=== PATIENT | female | born 1945 | race Caucasian/White ===

== ENCOUNTER → 2019-03-13 | Outpatient (REF) | payer MEDICARE ==
[2019-03-13 17:10] LABS: ALBUMIN 4.3 GM/DL (3.2-5.2); BILIRUBIN,TOTAL 0.5 MG/DL (0.2-1.0); C REACTIVE PROTEIN QUANTITATIV 0.37 MG/DL (0.00-0.30); CALCIUM LEVEL 9.7 MG/DL (8.8-10.2); CREATININE FOR GFR 1.29 MG/DL (0.55-1.30); GLOMERULAR FILTRATION RATE 43.1 (>39); POTASSIUM SERUM 3.6 MEQ/L (3.5-5.1); TOTAL PROTEIN 8.5 GM/DL (6.4-8.2); URIC ACID 9.2 MG/DL (2.6-6.0)
[2019-03-13 17:15] LABS: BASO # 0.1 10^3/uL (0.0-0.2); BASO % 1.3 % (0.0-1.0); EOS % 0.7 % (0.0-3.0); HEMATOCRIT 38.1 % (36.0-47.0); HEMOGLOBIN 12.3 g/dl (12.0-15.5); LYMPH % 15.7 % (24.0-44.0); MEAN CORPUSCULAR HEMOGLOBIN 31.9 pg (27.0-33.0); MEAN CORPUSCULAR HGB CONC 32.3 g/dl (32.0-36.5); MONO # 0.5 10^3/uL (0.0-0.8); NEUTROPHILS # 4.5 10^3/uL (1.5-8.5); NEUTROPHILS % 73.8 % (36.0-66.0); PLATELET COUNT, AUTOMATED 461 10^3/uL (150-450); RED BLOOD COUNT 3.85 10^6/uL (4.00-5.40); WHITE BLOOD COUNT 6.1 10^3/uL (4.0-10.0)
[2019-03-13 18:40] LABS: ERYTHROCYTE SEDIMENTATION RATE 49 mm/hr (0-30)
== END ==
LOC: M SFHCRHEU 11:40
PROVIDERS: ATTEND Internal Medicine Rheumatology
DX: M1A.9XX1 Chronic gout, unspecified, with tophus (tophi) (principal)
CPT/HCPCS: 36415; 80053; 84550; 85025; 85652; 86140; G0463

== ENCOUNTER → 2019-03-30 | Outpatient (REF) | payer MEDICARE | LOC: M LAB REF 18:21 | PROVIDERS: ATTEND Dermatology | DX: M10.9 Gout, unspecified (principal) ==

== ENCOUNTER → 2020-01-20 | Outpatient (REF) | payer MEDICARE ==
[2020-01-20 17:29] LABS: FERRITIN 283 NG/ML (8-252); IRON (FE) 79 UG/DL (50-170); PERCENT SATURATION 31.7 % (13.2-45.0); TOTAL IRON BINDING CAPACITY 249 UG/DL (250-450); TOTAL PROTEIN 8.2 GM/DL (6.4-8.2)
[2020-01-20 17:35] LABS: FOLATE > 24.0 NG/ML; VITAMIN B12 LEVEL 958 PG/ML
[2020-01-21 09:47] LABS: ALBUMIN 4.75 GM/DL (3.29-5.55); ALBUMIN % 57.9 % (55.8-66.1); ALPHA-1-GLOBULIN % 5.1 % (2.9-4.9); ALPHA-1-GLOBULINS 0.42 GM/DL (0.17-0.41); ALPHA-2-GLOBULINS 0.81 GM/DL (0.42-0.99); ALPHA-2-GLOBULINS % 9.9 % (7.1-11.8); BETA-1-GLOBULINS 0.34 GM/DL (0.28-0.60); BETA-1-GLOBULINS % 4.2 % (4.7-7.2); BETA-2-GLOBULINS 0.32 GM/DL (0.19-0.55); BETA-2-GLOBULINS % 3.9 % (3.2-6.5); GAMMA GLOBULINS 1.56 GM/DL (0.65-1.58)
== END ==
LOC: M SFHCRHEU 11:49
PROVIDERS: ATTEND Internal Medicine
DX: D64.9 Anemia, unspecified (principal)
CPT/HCPCS: 36415; 82607; 82728; 82746; 83550; 84165; G0463

== ENCOUNTER → 2021-09-05 | Outpatient (CLI) | payer MEDICARE ==
[~2021-09-05] MED LIST: ALBU2.5V10 INH; ALBU8.5H INH; ALLO300T2; COLC0.6T47 PO; DOXY100C3 PO; FOLI1TAB11 PO; FURO80TA2 PO; GABA-282 PO; HYDR-4571 PO; LEVO175T2 PO; LISI5TAB11 PO; MESA50SU PR; MONT10TA97 PO; NORT50CA PO; PANT40TA29 PO; PERF20NE2 INH; PRAV40TA2 PO; PROC1CRE TOP; PROC1CRE5 TOP; PROL60SO SC; RIZA10TA2 PO; SULF500T41 PO; TIZA2TA PO; TRIA37.577 PO; VITA200016 PO; ZYLO100T2 PO; ZYLO300T6 PO
== END ==
LOC: M WHC 13:36
PROVIDERS: ATTEND Advanced Practice Midwife
DX: Z12.31 Encounter for screening mammogram for malignant neoplasm of breast (principal)

== ENCOUNTER → 2023-01-25 | Outpatient (REF) | payer MEDICARE | LOC: M SFHCRHEU 11:43 | PROVIDERS: ATTEND Internal Medicine Rheumatology | DX: M1A.9XX1 Chronic gout, unspecified, with tophus (tophi) (principal) ==

== ENCOUNTER 2023-03-12 09:42 | Emergency (ER) | payer MEDICARE ==
[~2023-03-12] VITALS: Ht 160 cm; Wt 82.7 kg
[2023-03-12] MEDS ORDERED: NORCO, ANEXSIA 5/325MG TABLET (HYDROcodone/ACETAMINOPHEN) PO ONE (10:15)
[2023-03-12] MEDS ORDERED: LIDOCAINE 5% (LIDODERM) PATCH TD ONE (10:15)
[2023-03-12] MEDS ORDERED: LIDO5DIS41 TD (12:22)
[2023-03-12 12:30] VITALS: BP 140/76; TEMP 97.5; O2SAT 97
== END 2023-03-12 13:13 | disposition home or self-care (01) ==
LOC: EDBD 09:42 → M ED 11:34
DX: S33.5XXA Sprain of ligaments of lumbar spine, initial encounter (principal); S76.011A Strain of muscle, fascia and tendon of right hip, initial encounter; W01.0XXA Fall on same level from slipping, tripping and stumbling without subsequent striking against object, initial encounter; I10 Essential (primary) hypertension; Z88.0 Allergy status to penicillin; Z79.52 Long term (current) use of systemic steroids; Z79.891 Long term (current) use of opiate analgesic; Z79.899 Other long term (current) drug therapy; Z79.811 Long term (current) use of aromatase inhibitors

== ENCOUNTER 2023-03-21 12:00 | Emergency (ER) | payer MEDICARE ==
[~2023-03-21] VITALS: Ht 160 cm; Wt 82.7 kg
[~2023-03-21 12:00] MED LIST changes: +LIDO5DIS41 TD
[2023-03-21] MEDS ORDERED: NORCO, ANEXSIA 5/325MG TABLET (HYDROcodone/ACETAMINOPHEN) PO ONE ×2 (16:15→21:50)
[2023-03-21] MEDS ORDERED: LORazepam 2 MG/ML 1ML VIAL IV STA (16:53)
[2023-03-22 00:15] VITALS: BP 117/67; TEMP 97.9
[2023-03-22] MEDS ORDERED: PERCOCET 5MG/325MG TAB PO ONE (00:15)
[2023-03-22 00:20] VITALS: O2SAT 99
== END 2023-03-22 00:22 | disposition short-term general hospital (02) ==
LOC: M ED 12:00 → EDBD 12:00 → M ED 03-22 00:22
DX: S32.030A Wedge compression fracture of third lumbar vertebra, initial encounter for closed fracture (principal); W19.XXXA Unspecified fall, initial encounter; Y92.9 Unspecified place or not applicable; Y93.9 Activity, unspecified; Y99.9 Unspecified external cause status; M51.26 Other intervertebral disc displacement, lumbar region; M54.16 Radiculopathy, lumbar region; Z96.651 Presence of right artificial knee joint; K21.9 Gastro-esophageal reflux disease without esophagitis; I10 Essential (primary) hypertension; Z79.891 Long term (current) use of opiate analgesic; Z79.899 Other long term (current) drug therapy; Z88.0 Allergy status to penicillin
CPT/HCPCS: 72131; 72148; 73564; 96374; 99284; J2060

== ENCOUNTER → 2023-04-30 | Outpatient (REF) | payer MEDICARE | LOC: M SFHCRHEU 12:13 | PROVIDERS: ATTEND Internal Medicine Rheumatology | DX: M1A.9XX1 Chronic gout, unspecified, with tophus (tophi) (principal) ==